=== PATIENT | female | born 1995 | race Caucasian/White ===

== ENCOUNTER 2017-07-29 21:11 | Inpatient (IN) | payer OTHER ==
[~2017-07-29] VITALS: Ht 152.4 cm; Wt 102.9 kg
[2017-07-29 21:24] VITALS: BP 132/80
[2017-07-29] MEDS ORDERED: IBUPROFEN800 MG PO (22:36)
[2017-07-29] MEDS ORDERED: ENDOCET 5-3251 EACH PO (22:36)
[2017-07-29 22:56] LABS: BASOPHIL (%) 0.4 % (0-1); EOSINOPHIL COUNT 0.1 K/uL (0-0.3); HEMATOCRIT 33.1 % (36.0-46.0); IMMATURE GRANULOCYTE (%) 0.3 % (0.0-0.7); LYMPHOCYTE (%) 22.3 % (15-42); MCH 28.7 PG (29.0-34.0); MCHC 33.2 G/DL (30.0-36.0); MCV 86.4 FL (83-99); MONOCYTE (%) 9.8 % (3-12); MONOCYTE COUNT 0.9 K/uL (0-0.8); NEUTROPHIL (%) 66.2 % (45-76); PLATELET COUNT 312 K/uL (156-360); RBC DIS.WIDTH-CV 13.5 % (11.8-14.6); RED BLOOD COUNT 3.83 M/uL (3.80-5.20); WHITE BLOOD COUNT 9.1 K/uL (4.1-10.2)
[2017-07-30] VITALS (7 sets, daily range): BP systolic 91–110; BP diastolic 53–67
[2017-07-30 06:39] LABS: BASOPHIL (%) 0.1 % (0-1); EOSINOPHIL (%) 0.1 % (0-5); HEMATOCRIT 31.9 % (36.0-46.0); HEMOGLOBIN 10.6 G/DL (11.9-15.5); IMMATURE GRANULOCYTE (%) 0.3 % (0.0-0.7); LYMPHOCYTE (%) 7.5 % (15-42); LYMPHOCYTE COUNT 1.1 K/uL (1.0-2.8); MCH 28.9 PG (29.0-34.0); MCHC 33.2 G/DL (30.0-36.0); MCV 86.9 FL (83-99); MONOCYTE (%) 6.5 % (3-12); NEUTROPHIL (%) 85.5 % (45-76); NEUTROPHIL COUNT 12.6 K/uL (1.8-6.4); PLATELET COUNT 245 K/uL (156-360); RBC DIS.WIDTH-CV 13.5 % (11.8-14.6); RBC DIS.WIDTH-SD 42.5 % (39-53); RED BLOOD COUNT 3.67 M/uL (3.80-5.20); WHITE BLOOD COUNT 14.7 K/uL (4.1-10.2)
[2017-07-31 07:06] VITALS: BP 92/62
[2017-07-31 11:20] VITALS: BP 117/59
[2017-07-31 15:59] VITALS: BP 108/57
[2017-08-01 07:27] VITALS: BP 107/56
[2017-08-01 15:29] VITALS: BP 108/63
== END 2017-08-02 12:35 | disposition home or self-care (01) | DRG 766 ==
LOC: LDRP-OP 21:11 → 2WEST 21:12 → LDRP-OP 08-27 16:55
PROVIDERS: Midwife; Obstetrics & Gynecology Gynecology
PROC: 10D00Z1 Extraction of Products of Conception, Low, Open Approach (ICD-10-PCS; principal; 2017-07-29)
DX: O36.63X0 Maternal care for excessive fetal growth, third trimester, not applicable or unspecified (principal); O69.81X0 Labor and delivery complicated by cord around neck, without compression, not applicable or unspecified; O48.0 Post-term pregnancy; O99.214 Obesity complicating childbirth; E66.9 Obesity, unspecified; Z68.34 Body mass index [BMI] 34.0-34.9, adult; Z3A.40 40 weeks gestation of pregnancy; Z37.0 Single live birth; Z91.040 Latex allergy status
CPT/HCPCS: 85025; 86850; 86900; 86901; J0690; J1100; J1200; J2274; J2405

== ENCOUNTER → 2017-08-08 | Outpatient (CLI) | payer OTHER ==
[~2017-08-08] MED LIST: ENDOCET 5-3251 EACH PO; IBUPROFEN800 MG PO
== END | disposition home or self-care (01) ==
LOC: LAC 13:06
DX: Z39.1 Encounter for care and examination of lactating mother (principal); O92.79 Other disorders of lactation
CPT/HCPCS: G0463